=== PATIENT | female | born 1965 | race Hispanic/Latino ===

== ENCOUNTER 2024-08-12 03:20 | Emergency (ER) | payer OTHER ==
[~2024-08-12] VITALS: Ht 149.9 cm; Wt 56.2 kg
[2024-08-12] MEDS: ondanSETRON 4MG INJ IVP ONE (03:47)
[2024-08-12] MEDS: LACTATED RINGERS 1000ML IV ONE (03:48)
[2024-08-12 04:06] LABS: HEMATOCRIT 43.5 % (36-48); MEAN CORPUSCULAR HGB CONC 33.6 g/dL (32.0-36.0); MEAN CORPUSCULAR VOLUME 89.3 fL (79-99); RED BLOOD CELL COUNT(AUTO) 4.87 MIL/uL (4.00-5.50); RED CELL DISTRIBUTION WIDTH 12.7 % (11.0-15.5); WHITE BLOOD COUNT (AUTO) 19.3 K/uL (4.8-10.8)
[2024-08-12 04:10] LABS: POTASSIUM 4.2 mmol/L (3.5-5.1)
--- NOTE | 2024-08-12 04:45 | ERN ---
ED Note History of Present Illness Stated Complaint: N/V/D, WEAKNESS ONSET 2330 Chief Complaint: Nausea,Vomiting,Diarrhea Time Seen by MD: 03:29 Dictation: THIS IS A 58-YEAR-OLD FEMALE CAME INTO THE EMERGENCY ROOM COMPLAINING OF SEVERE NAUSEA VOMITINGS AND DIARRHEA AND PROFUSE WEAKNESS WHICH ALL STARTED AROUND 23 30 HOURS LAST NIGHT. SHE STATED THAT SHE ATE RAVIOLI AND SHE WAS THE ONLY 1 WHO ATE THEM. NO OTHER FAMILY MEMBERS ARE SICK. NO HEMATEMESIS OR MELENA NO FEVER CHILLS OR RIGORS. NO DYSURIA HEMATURIA. TEMPERATURE 98.7 PULSE 98 RESPIRATIONS 19 BLOOD PRESSURE 114/78 PULSE OXIMETRY 98% ON ROOM AIR CHRONIC MEDICAL PROBLEMS INCLUDE HYPOTHYROIDISM Allergies: Coded Allergies: morphine (Unverified Allergy, Unknown, 08/12/24) Past Medical History Past Medical History: Hypothyroid Surgical History: Unknown Family History: Negative Social History: Negative RN Note Reviewed/Agreed w/PFSH: Yes Review of System Dictation Constitutional: Negative for fever,chills, and weight loss Eyes: Negative for injury, pain,redness, and discharge ENT: Negative for injury,pain or swelling Cardiovascular: Negative for chest pain, palpitations, and edema Respiratory: Negative for shortness of breath, cough, and wheezing, Abdomen/GI: Positive for abdominal pain, nausea, vomiting, diarrhea, Back: Negative for injury and pain : Negative for injury, bleeding and discharge MS/Extremity: Negative for injury and deformity Skin: Negative for rash, and discoloration Neuro: Negative for headache, weakness, numbness, tingling, and seizure Psych: Negative for suicide ideation, homicidal ideation, and hallucinations Initial Vital Sign VS Vital Signs Date Time Temp Pulse Resp B/P (MAP) Pulse Ox O2 Delivery O2 Flow Rate FiO2 08/12/24 03:24 98.8 110 19 114/78 98 Room Air* 0 21 Physical Exam Dictation General: awake, alert, NAD looks very sick Head/Face: Normocephalic, atraumatic Eyes: PERRL, EOMI, vision at baseline ENT: oral cavity dry TMs clear, no signs of infection Neck: Trachea midline, supple, no nuchal rigidity Cardiovascular: RRR, normal S1/S2, No MRGs, no JVD Respiratory: CTAB, no respiratory distress, No rales or wheezes Abdomen: Soft, non-tender, non-distended, normal bowel sounds, no guarding or rebound. Skin: Warm, dry, poor l turgor, no rash MS/Extremity: Pulses equal, no cyanosis, neurovascular intact, FROM Neuro: COAx4, GCS 15, strength 5/5, CN 2-12 intact, normal cerebellar exam, normal gait, Psych: Normal behavior, mood, and affect normal Extremities-trace edema without any palpable cords, Homans sign is negative Results (Laboratory/Radiology) Laboratory/Radiology Laboratory Tests Test 08/12/24 03:53 08/12/24 05:23 White Blood Count 19.3 K/uL (4.8-10.8) H Red Blood Count 4.87 MIL/uL (4.00-5.50) Hemoglobin 14.6 g/dL (12.0-16.0) Hematocrit 43.5 % (36-48) Mean Corpuscular Volume 89.3 fL (79-99) Mean Corpuscular Hemoglobin 30.0 pg (27.0-33.0) Mean Corpuscular Hemoglobin Concent 33.6 g/dL (32.0-36.0) Red Cell Distribution Width 12.7 % (11.0-15.5) Platelet Count 264 K/uL (130-400) Mean Platelet Volume 10.0 fL (7.5-10.5) Nucleated Red Blood Cells 0.0 % (0.0-0.19) Sodium Level 139 mmol/L (136-145) Potassium Level 4.2 mmol/L (3.5-5.1) Chloride Level 105 mmol/L (101-111) Carbon Dioxide Level 21 mmol/L (21-32) Blood Urea Nitrogen 23 mg/dL (7-18) H Creatinine 1.0 mg/dL (0.5-1.0) Glomerular Filtration Rate Calc 65 mL/min (>90) Random Glucose 129 mg/dL (70-105) H Total Calcium 9.4 mg/dL (8.5-10.1) Lipase 31 U/L (16-77) Serum Test, Qualitative NEGATIVE (NEGATIVE) Urine Color LIGHT-YELLOW (YELLOW) Urine Appearance CLEAR (CLEAR) Urine pH 6.0 (5.0-8.0) Urine Specific Colt 1.009 (1.001-1.031) Urine Protein NEGATIVE mg/dL (NEGATIVE) Urine Glucose (UA) NEGATIVE mg/dL (NEGATIVE) Urine Ketones 5 mg/dL (NEGATIVE) H Urine Occult Blood NEGATIVE (NEGATIVE) Urine Nitrate NEGATIVE (NEGATIVE) Urine Bilirubin NEGATIVE mg/dL (NEGATIVE) Urine Urobilinogen 0.2 mg/dL (0.2-1.0) Urine Leukocyte Esterase NEGATIVE Gera/uL Urine RBC 0-1 /HPF (0-1) Urine WBC 2-5 /HPF (0-1) H Urine Squamous Epithelial Cells RARE /HPF (0-2) Urine Bacteria RARE /HPF (None Seen) Labs Reviewed?: Yes ED Course ED Course Orders Procedure Category Date Status Time Cbc Without LAB 08/12/24 Complete Differential 03:25 Basic Metabolic Panel LAB 08/12/24 Complete 03:25 Lipase LAB 08/12/24 Complete 03:25 Lactated Ringers PHA 08/12/24 Complete 1000ml (Lactated 03:30 Ondansetron 4mg Inj PHA 08/12/24 Complete (Zofran 4mg Inj) 03:30 Urinalysis Profile LAB 08/12/24 Complete 03:50 Testing, LAB 08/12/24 Complete Serum Hcg 04:09 Levofloxacin 750 PHA 08/12/24 Complete Mg/D5w 150 Ml 05:30 Levofloxacin 750mg PHA 08/12/24 In Process Tab (Levaquin 750mg T 05:30 Current Medications Medications (Trade) Dose Ordered Sig/Joe Route PRN Reason Start Time Stop Time Status Last Admin Dose Admin Lactated Ringer's (Lactated Ringers 1000ml) 1,000 ml ONCE ONCE IV 08/12/24 03:30 08/12/24 03:32 DC 08/12/24 03:48 Levofloxacin (LEvaquIN 750MG TAB) 750 mg ONCE PO 08/12/24 05:30 08/22/24 05:29 08/12/24 05:33 Levofloxacin/ Dextrose (LEvaquIN 750 MG/ D5W 150 ML) 750 mg ONCE ONCE IV 08/12/24 05:30 08/12/24 05:30 DC Ondansetron HCl (zoFRAN 4MG INJ) 4 mg ONCE ONCE IVP 08/12/24 03:30 08/12/24 03:31 DC 08/12/24 03:47 Vital Signs Date Time Temp Pulse Resp B/P (MAP) Pulse Ox O2 Delivery O2 Flow Rate FiO2 08/12/24 03:25 98.8 110 19 114/78 98 Room Air 0 08/12/24 03:24 98.8 110 19 114/78 98 Room Air* 0 21 We will perform diagnostic labs, advanced imaging and administer medications according to the patient's complaint. Once the results are available, will review and personally interpreted the labs to rule out any acute life- threatening emergency the trach require immediate intervention and treatment. I will then re-evaluate the patient after treatment and diagnostic exams have return to determine whether the patient requires any further testing, can safely be discharged home or need further admission to hospital for additional treatment and evaluation. Labs reviewed CBC showed a white count of 19.3. Hemoglobin 14.6 platelets 264. BNP 7 showed a BUN and creatinine of 23 and 1.0 Hydration and symptomatic management is in progress 6:24 a.m. urinalysis is negative for any acute infection. Patient feels significantly improved and looks clinically much better as well. We will plan DC to home on Cipro Medical Decision Making MDM MDM: Differential diagnosis: Food poisoning, gastroenteritis, colitis, cholecystitis, SBO Rationale: Tests considered and ordered secondary to shared decision making include: Previous outside records reviewed: Old ER visits. Risk of complication and/or morbidity or mortality of patient management: None Medications-Per medication reconciliation Need for hospitalization: Patient does not meet criteria for hospitalization. Need for emergency major/minor surgery: No There are no social concerns with this patient. Prescription drug management Prescriptions will include symptomatic care Patient's prior external medical records from other ER visits were reviewed by me as indicated. Prior testing and results from previous visits were reviewed. Prior tests were taken into account with medical decision making and resource utilization, independent historian/historians were used to obtain complete medical history. I independently interpreted the test that were performed, results were reviewed by me and considered findings on radiology if ordered. Medical management and examination interpretation discussions were had by me with other qualified healthcare professionals as indicated for the patient's care. Problem List Problem List: (1) Gastroenteritis (2) Food poisoning (3) Acute kidney injury DX & DISP Disposition: Discharge Departure Impression: Primary Impression: Gastroenteritis Additional Impressions: Food poisoning, Acute kidney injury Condition: Stable Scripts Ciprofloxacin HCl (Cipro) 500 Mg Tablet 1 TAB PO BID for 10 Days, #20 TAB 0 Refills Prov: VANESSA CENTENO MD 08/12/24 Additional Instructions: Patient and the caregiver have been informed of all the diagnostic tests and the imaging conducted during the today's visit to the emergency room and has verbalized understanding of the results I have personally reviewed and interpreted all diagnostic exams performed here in the ER today as well as the vital signs documented by the nursing staff. The patient is now being discharged to home and should follow up with the primary care physician or the specialist as directed by the ER staff. Follow-up with primary care provider in 1 to 2 days. Take medications as directed here in the emergency room. Okay to continue home medications unless otherwise discussed during your visit in the emergency room today. Return to your nearest emergency room if symptoms worsen or if there is no improvement. Call 911 if you need immediate assistance. Take Tylenol or Motrin [id number] as needed and if no contraindications are present. Increase oral hydration. A wound culture or urine culture was ordered here in the emergency room department please follow-up with primary care provider and advise them to get repeat ports from our facility. If you had any Garret wrap/splints that were applied here, please do not remove them until you see your primary care or specialty. Referrals: SELF,REFERRAL (PCP) VANESSA CENTENO MD Aug 12, 2024 04:45
[2024-08-12] MEDS ORDERED: levoFLOXacin 750 MG/D5W 150ML BAG IV ONE (05:30)
[2024-08-12] MEDS: levoFLOXacin 750 MG TABLET PO SCH (05:33)
[2024-08-12 05:47] LABS: APPEARANCE,URINE CLEAR (CLEAR); BILIRUBIN,URINE NEGATIVE (NEGATIVE); COLOR,URINE LIGHT-YELLOW (YELLOW); GLUCOSE, URINE (UA) NEGATIVE (NEGATIVE); KETONES,URINE 5 mg/dL (NEGATIVE); LEUKOCYTE ESTERASE ,URINE NEGATIVE Leu/uL (NEGATIVE); NITRATE,URINE NEGATIVE (NEGATIVE); OCCULT BLOOD,URINE NEGATIVE (NEGATIVE); PROTEIN,URINE NEGATIVE (NEGATIVE); UROBILINOGEN,URINE 0.2 mg/dL (0.2-1.0)
[2024-08-12 05:50] LABS: ADD UA MICROSCOPIC YES; BACTERIA,URINE RARE /HPF (None Seen); MUCUS,URINE RARE LPF (None Seen); RBC,URINE 0-1 /HPF (0-1); SQUAMOUS EPITHELIAL CELL,UR RARE /HPF (0-2)
[2024-08-12] MEDS ORDERED: CIPR-278 PO (06:27)
[2024-08-12 06:40] VITALS: BP 106/58; PULSE 101; RESP 20; TEMP 98.4; O2SAT 99
== END 2024-08-12 06:42 | disposition home or self-care (01) ==
LOC: EDH 03:20
DX: K52.9 Noninfective gastroenteritis and colitis, unspecified (principal); A05.9 Bacterial foodborne intoxication, unspecified; N17.9 Acute kidney failure, unspecified; E03.9 Hypothyroidism, unspecified; Z88.5 Allergy status to narcotic agent
CPT/HCPCS: 99284; 96374; 96361; 80048; 84703; 83690; 85027; 81001; 36415; J7120; J2405